=== PATIENT | female | born 1940 | race Caucasian/White ===

== ENCOUNTER → 2016-10-14 | Outpatient (CLI) | payer MEDICARE ==
[~2016-10-14] MED LIST: CEFD300C2 PO; DOXY-168 PO; GUAI600T22 PO; LACT1CAP24 PO; LEVO100T PO
== END | disposition home or self-care (01) ==
LOC: CFH 08:47
PROVIDERS: ATTEND Internal Medicine Cardiovascular Disease
DX: R07.9 Chest pain, unspecified (principal); R00.2 Palpitations; R06.02 Shortness of breath
CPT/HCPCS: 93306

== ENCOUNTER → 2017-01-13 | Outpatient (CLI) | payer MEDICARE ==
[~2017-01-13] MED LIST changes: -CEFD300C2 PO; +CEFD300C37 PO
== END | disposition home or self-care (01) ==
LOC: CFH 12:25
PROVIDERS: ATTEND Family Medicine
DX: Z13.820 Encounter for screening for osteoporosis (principal); M85.80 Other specified disorders of bone density and structure, unspecified site
CPT/HCPCS: 77080

== ENCOUNTER → 2018-03-29 | Outpatient (CLI) | payer MEDICARE ==
[~2018-03-29] MED LIST changes: -DOXY-168 PO; +DOXY100T10 PO; +GADOBUTROL 7.5 MMOL/7.5 ML PFS ONE; -GUAI600T22 PO; +GUAI600T31 PO
== END | disposition home or self-care (01) ==
LOC: CFH 11:49
PROVIDERS: ATTEND Specialist
DX: H60.533 Acute contact otitis externa, bilateral (principal); D23.20 Other benign neoplasm of skin of unspecified ear and external auricular canal; R22.1 Localized swelling, mass and lump, neck; R42 Dizziness and giddiness
CPT/HCPCS: 70543; 82565; A9585

== ENCOUNTER → 2018-09-14 | Outpatient (CLI) | payer MEDICARE ==
[~2018-09-14] MED LIST changes: -GADOBUTROL 7.5 MMOL/7.5 ML PFS ONE; +REGADENOSON 0.4 MG/5 ML SYRINGE ONE
== END | disposition home or self-care (01) ==
LOC: CFH 12:04
PROVIDERS: ATTEND Family Medicine
DX: R42 Dizziness and giddiness (principal); R07.89 Other chest pain
CPT/HCPCS: 78452; 93017; A9502; J2785